=== PATIENT | male | born 1975 | race Caucasian/White ===

== ENCOUNTER → 2016-06-20 | Outpatient (CLI) | payer OTHER ==
[~2016-06-20] VITALS: Ht 182.9 cm; Wt 81.6 kg
[~2016-06-20] MED LIST: AMITRIPTYLINE H10 M3 PO; NAPROSYN500 MG PO
--- NOTE | ~2016-06-20 | HPC ---
[facility] [place] [address] PAIN MANAGEMENT CONSULTATION Name: SHANIKASTUART NAZARIO Room #: REG [facility].#: [id number] Admission: 06/20/16 Attend Phys: Chikis Givens MD Discharge: Date of : 79 Report #: [id number] THIS REPORT FOR: //name// CC: Chikis Dietrich MD DATE OF SERVICE: 06/20/2016 FOLLOWUP COMPLAINT: Pain radiating down the left leg with numbness, tingling, weakness and "my MRI shows a herniated disk." HISTORY OF PRESENT ILLNESS: The patient is a 41-year-old gentleman who has been followed and he has been referred to the pain clinic for evaluation of back and leg pain. The patient has had pain and discomfort over the last 7-8 months. The pain radiates down to the back of his leg with numbness, weakness and tingling. He also is experiencing pain now down into the lateral portion of his foot along the S1 distribution. He notes that the pain is exacerbated with activity and is worse at night. The patient has done physical therapy and taken hydrocodone with only mild improvement of his symptoms. He notes that his pain worsens with walking. It is somewhat better when he elevates his feet and lies down. He describes it as constant, shooting, stabbing and rates it as 7/10 at this juncture. ALLERGIES: No known drug allergies. MEDICATIONS: Naproxen 500 mg 1 p.o. b.i.d. FAMILY HISTORY: Heart disease, diabetes, hypertension and prostate cancer. PAST MEDICAL HISTORY: Generally unremarkable. PAST SURGICAL HISTORY: Double hernia repair, September 2013. SOCIAL HISTORY: He is a echocardiography technologist. He is working at this juncture. Drinks 1-2 alcoholic beverages per week. Denies use of tobacco. He is . Denies use of illicit drugs. He has 4 children. REVIEW OF SYSTEMS: A 14-point review of systems questionnaire in the chart indicates generally good health, chronic sinus problem with rhinitis. Otherwise, unremarkable. DIAGNOSTIC DATA: MRI of the lumbar spine dated 05/04/2016 reveals: 1. L4-L5 mild bilateral facet arthropathy. 2. L5-S1, there is a mild generalized disk bulge with a superimposed left paracentral disk herniation. This disk herniation compresses the left S1 nerve [address] [address] PAIN MANAGEMENT CONSULTATION Name: STUART VOSS Room #: REG [facility].#: [id number] Admission: 06/20/16 Attend Phys: Chikis Givens MD Discharge: Date of : 79 Report #: [id number] root and contributes to mild left-sided central canal stenosis. There is mild bilateral facet arthropathy. PHYSICAL EXAMINATION: VITAL SIGNS: Blood pressure 112/73, pulse 74, respiratory rate 16, room air saturation 97%. Height 6 feet, weight 180 kg, BMI ____. IMPRESSION: Herniated disk at L5-S1, radiating pain down the left L5-S1 nerve root to the level of his foot with numbness, tingling and weakness. RECOMMENDATIONS: 1. We discussed treatment options with the patient. Risks and benefits of an epidural steroid injection were discussed. Possible complications were reviewed. The patient was informed about the possible complications of an epidural steroid injection. He would like to proceed at this juncture. 2. We will petition his insurance company to let him undergo an epidural steroid series. Risks and benefits again were reviewed, and the patient will follow up for treatment after precertification by his insurance company. He has undergone 6 weeks of physical therapy, had greater than 6 weeks of Naprosyn and also tried ibuprofen in the past. By: [id number] Chikis Givens MD /hugo
[2016-06-20 08:36] VITALS: BP 112/73
== END | disposition home or self-care (01) ==
LOC: PAIN 07:01
DX: M51.27 Other intervertebral disc displacement, lumbosacral region (principal)

== ENCOUNTER → 2016-06-27 | Outpatient (CLI) | payer OTHER ==
[~2016-06-27] VITALS: Ht 182.9 cm; Wt 82.3 kg
--- NOTE | ~2016-06-27 | HPC ---
[facility] [address] [place] [address] PAIN MANAGEMENT CONSULTATION Name: STUART VOSS Room #: REG [facility].#: [id number] Admission: 06/27/16 Attend Phys: Chikis Givens MD Discharge: Date of : 77 Report #: [id number] THIS REPORT FOR: //name// CC: Chikis Dietrich MD DATE OF SERVICE: 06/27/2016 PRIMARY CARE PHYSICIAN: Jonathan Dietrich M.D. FOLLOWUP COMPLAINT: Here for an epidural steroid injection. FOLLOWUP HISTORY: The patient is a 41-year-old gentleman who has been seen in the pain clinic in the past because of lumbar radiculopathy. He has a disk at L5-S1 with a left paracentral disk herniation It compresses the left S1 nerve root and contributes to mild left-sided central canal stenosis. The patient rates his pain as a 4/10. It involves his low back with radiation down into his left leg, with numbness, weakness involving his foot. He would like to proceed with an epidural steroid injection at this juncture. PHYSICAL EXAMINATION: VITAL SIGNS: Blood pressure 117/56, pulse 92, respiratory rate 16 and room air O2 saturation is 97%. Height 6 feet, weight 82 kilograms. BMI 24. MUSCULOSKELETAL: The patient has pain and discomfort in the lower portion of his back, with pain radiating down to the left leg with numbness, tingling and weakness with radiation down into his foot. RADIOLOGIC DATA: MRI showing disk hernia at the L5-S1 nerve root. IMPRESSION Lumbar radiculopathy involving the L5-S1 nerve root with herniation of the disk at this level. RECOMMENDATIONS: We discussed the treatment options with the patient. Risks and benefits of an epidural steroid injection were discussed. Possible complications were reviewed. Possible complications were explained to the patient's satisfaction. We will proceed with an epidural steroid injection. PROCEDURE NOTE: The patient was placed in the prone position. Fluoroscopy was used to identify the L5-S1 interspace. This area had been sterilely prepped with Betadine and infiltrated with 0.25% bupivacaine. Total of 80 mg Depo-Medrol, 40 mg triamcinolone and 2 mL of 0.25% bupivacaine was injected. The patient tolerated the procedure well. He remained in the pain clinic for an appropriate amount of time. Six seconds of fluoroscopy time was used. He will continue with his current medical regimen of Naprosyn 500 mg 1 p.o. b.i.d. and Elavil 10 mg 1 p.o. at bedtime. He will call us if [place] [address] PAIN MANAGEMENT CONSULTATION Name: STUART VOSS Room #: REG [facility] Lisseth#: [id number] Admission: 06/27/16 Attend Phys: Chikis Givens MD Discharge: Date of : 79 Report #: [id number] medications. We would like to thank you for letting us participate in his care. We hope he continues to improve. By: [id number] Chikis Givens MD /hugo
[2016-06-27 09:16] VITALS: BP 117/56
== END | disposition home or self-care (01) ==
LOC: PAIN 06:50
DX: M54.16 Radiculopathy, lumbar region (principal); M51.26 Other intervertebral disc displacement, lumbar region

== ENCOUNTER → 2016-11-14 | Outpatient (CLI) | payer OTHER ==
[~2016-11-14] VITALS: Ht 182.9 cm; Wt 81.2 kg
[~2016-11-14] MED LIST changes: +AMITRIPTYLINE H25 M2 PO; +HYDROCODON-ACE1 EAC5 PO; +MOBIC15 MG PO
--- NOTE | ~2016-11-14 | HPC ---
[facility] [address] [place] [address] PAIN MANAGEMENT CONSULTATION Name: STUART VOSS Room #: REG [facility].#: [id number] Admission: 11/14/16 Attend Phys: Chikis Givens MD Discharge: Date of : 77 Report #: [id number] THIS REPORT FOR: //name// CC: Chikis Dietrich MD DATE OF SERVICE: 11/14/2016 PRIMARY PHYSICIAN: Jonathan Dietrich MD CHIEF COMPLAINT: Pain improves significantly after the first injection. It has worsened since going on a long drive. FOLLOWUP HISTORY: The patient is a 41-year-old gentleman who has been seen in the pain clinic because of lumbar radiculopathy. As you recall, he has suffered a herniated disk at the L5-S1 level. He underwent an epidural steroid injection earlier this year. Things are going relatively well and he was doing well. He went on a prolonged drive taking his kid to school. Since that time, he has had pain, which has been quite problematic. It has recurred and radiates down his left side to his left leg, foot and toes. He has some tenderness in his back as well. He rates the pain as a 10/10. He is having difficulty walking, sitting and standing. He ____ most comfortable position that of lying down with his feet elevated. PHYSICAL EXAMINATION: Blood pressure is 144/77, pulse 117, respiratory rate 20, room air saturation 99. The patient is lying on the bed. He has his feet somewhat elevated and complains of pain and discomfort in the lower portion of his back with pain radiating down into his leg involving the L5-S1 dermatomal distribution. He notes some tingling and numbness in the affected areas. IMPRESSION: 1. MRI of the lumbar spine dated 05/04/2016 reveals L5-S1 mild disk bulge with a superimposed left paracentral herniated disk. This disk compresses the L5-S1 nerve root and contributes to a mild left-sided canal stenosis. There is mild bilateral facet arthropathy. 2. Lumbar radiculopathy, which has improved in the past with an epidural steroid injection, but now has returned with pain radiating down to the left L5-S1 nerve root distribution with numbness, tingling and weakness. He rates his pain as a 10/10 and has difficulty engaging in activities of daily living. RECOMMENDATION: We will petition his insurance company for ability to provide treatment to ease his pain. The patient will return to the pain clinic after the insurance company allows and at which time he will undergo an epidural steroid injection. He has been given a script for hydrocodone 10/325 one p.o. q. 8 hours p.r.n., Elavil 25 mg 1 p.o. at bedtime and we will increase it [address] [address] PAIN MANAGEMENT CONSULTATION Name: STUART VOSS [facility] [id number] Admission: 11/14/16 Attend Phys: Chikis Givens MD Discharge: Date of : 77 Report #: [id number] his sleep continues to be problematic and he remains at pain. Mobic 15 mg 1 p.o. daily. I would like to thank you for letting us participate in his care. We hope he continues to improve. By: [id number] [id number] Chikis Givens MD /
[2016-11-14 08:57] VITALS: BP 144/77
== END | disposition home or self-care (01) ==
LOC: PAIN 07:22
DX: M54.16 Radiculopathy, lumbar region (principal); Z98.890 Other specified postprocedural states

== ENCOUNTER → 2016-11-21 | Outpatient (CLI) | payer OTHER ==
[~2016-11-21] VITALS: Ht 182.9 cm; Wt 82.6 kg
--- NOTE | ~2016-11-21 | HPC ---
[facility] [address] [place] [address] PAIN MANAGEMENT CONSULTATION Name: SAMARAJORDINSTUARTMARNIE NAZARIO [facility] [id number] Admission: 11/21/16 Attend Phys: Chikis Givens MD Discharge: Date of : 79 Report #: [id number] THIS REPORT FOR: //name// CC: Chikis Dietrich DATE OF SERVICE: 11/21/2016 FOLLOWUP HISTORY: I am here for an injection. Pain was worse after a driving my tow to [place]. SUBJECTIVE: The patient is a 41-year-old gentleman who has been seen in the pain clinic because of lumbar radiculopathy. He has undergone epidural steroid injections in the past and gleaned benefits from this. He drove his tow to [place]. After that, he had noticed worsening of his pain and discomfort. He was experiencing pain, which radiated down into his leg on the left. He continued to have pain in the L5-S1 distribution. He has followed up in the pain clinic. His insurance company has at this juncture presorted him for an epidural steroid injection. He has returned for treatment. PHYSICAL EXAMINATION: Blood pressure 122/88, pulse 88, respiratory rate 16, room air saturation is 100. The patient has pain and discomfort radiating down into the left leg with numbness, tingling and weakness in the L5-S1 disk nerve distribution. He also has pain radiating down to the level of his foot. IMPRESSION: Lumbar radiculopathy with an MRI showing L5 degenerative disk disease and disk bulge in the superimposed left paracentral disk herniation. RECOMMENDATIONS: We discussed treatment options with the patient. Again, risks and benefits of the procedure were discussed. They include but are not limited to infection and increased muscle soreness, bleeding, headaches, muscle trauma, nerve trauma and the patient elects to proceed. PROCEDURE NOTE: The patient was placed in the prone position. Fluoroscopy was used to identify the L5-S1 interspace. This area had been sterilely prepped with Betadine and infiltrated with 0.25% bupivacaine. Total of 80 mg Depo-Medrol, 40 mg triamcinolone and 2 mL of 0.25% bupivacaine was injected. The patient tolerated the procedure well. There were no complications. He remained in the pain clinic for an appropriate amount of time. He will follow up in the future as needed. We would like to thank you for letting us participate in his care. We hope he continues to improve. By: [id number] Chikis Givens MD /hugo
[2016-11-21 12:42] VITALS: BP 122/80
== END | disposition home or self-care (01) ==
LOC: PAIN 07:07
DX: M51.16 Intervertebral disc disorders with radiculopathy, lumbar region (principal)

== ENCOUNTER → 2016-12-12 | Outpatient (CLI) | payer OTHER ==
[~2016-12-12] VITALS: Ht 182.9 cm; Wt 81.6 kg
[~2016-12-12] MED LIST changes: +MEDROLDOSEPACK PO; +PERCOCET 10-321 EACH PO
--- NOTE | ~2016-12-12 | HPC ---
[facility] [address] [address] PAIN MANAGEMENT CONSULTATION Name: STUART VOSS [facility] [id number] Admission: 12/12/16 Attend Phys: Chikis Givens MD Discharge: Date of : 79 Report #: [id number] THIS REPORT FOR: //name// CC: Chikis Dietrich DATE OF SERVICE: 12/12/2016 FOLLOWUP COMPLAINT: Return of back and leg pain, which improved by greater than 50% in the past. FOLLOWUP HISTORY: The patient is a 41-year-old gentleman who has been seen in the pain clinic because of lumbar radiculopathy. He has undergone epidural steroid injections. He has gleaned in improvement in this after a long trip to [facility]. He noted some worsening of his pain and discomfort. He underwent an epidural steroid injection and noted some continued improvement, but continues to have pain and discomfort, which he described as a 5/10. Pain involves his left thigh and radiates down into his leg involving his foot and toes. He also is having some numbness in his left buttocks and left calf. He notes walking and standing are problematic. Lying down with his feet elevated is somewhat helpful. He continues to exercise. PHYSICAL EXAMINATION: Blood pressure is 131/80, pulse 67, respiratory rate 16, room air saturation 98%. Height 6 feet, weight 180 pounds, BMI is 24. The patient has not fallen since we saw him last. He continues to have pain and discomfort, which has improved with series of epidural steroid injections thus far, but continues to be problematic at this juncture. IMPRESSION: 1. Lumbar radiculopathy in the L5 distribution with pain radiating down into his posterior thigh, calf and lateral to toes in the L5-S1 distribution. 2. MRI findings which indicates L5-S1 disk bulge with superimposed left paracentral disk herniation. The disk herniation compresses the left S1 nerve root and contributes to a left-sided central canal stenosis. RECOMMENDATIONS: We will proceed should his insurance company. He has received greater than 50% improvement with the injections. He does have a herniated disk on MRI, which showed pressure on the L5-S1 nerve root. He continues to try nonsteroidal antiinflammatory medications. He has tried a Medrol Dosepak. He continues to exercise. He is on meloxicam. He is using amitriptyline to help with pain and sleep. The patient will return to the pain clinic at which time he will undergo an epidural steroid injection in the L5-S1 distribution, which shows pain radiating down the posterior portion of his leg with numbness, tingling and straight leg raise possible and numbness and tingling of the [facility] [address] [place] [address] PAIN MANAGEMENT CONSULTATION Name: STUART VOSS Room #: REG [facility]#: [id number] Admission: 12/12/16 Attend Phys: Chikis Givens MD Discharge: Date of : 79 Report #: [id number] lateral to toes on his foot. We would like to thank you for letting us participate in his care. We hope he continues to improve. By: [id number] Chikis Givens MD /SHARIF
[2016-12-12 12:35] VITALS: BP 131/80
== END | disposition home or self-care (01) ==
LOC: PAIN 07:26
DX: M54.16 Radiculopathy, lumbar region (principal)

== ENCOUNTER → 2017-02-08 | Outpatient (CLI) | payer OTHER ==
[~2017-02-08] VITALS: Ht 182.9 cm; Wt 84.4 kg
--- NOTE | ~2017-02-08 | HPC ---
[facility] [place] [address] [address] [place] [address] PAIN MANAGEMENT CONSULTATION Name: SHANIKASTUARTMARNIE NAZARIO [id number] Admission: 02/08/17 Attend Phys: Chikis Givens MD Discharge: Date of : 79 Report #: [id number] THIS REPORT FOR: //name// CC: Chikis Dietrich DATE OF SERVICE: 02/08/2017 FOLLOWUP COMPLAINT: Pain has improved, greater than 50% since the injections. Still having pain and discomfort with numbness down into the left leg, buttocks and involving the outer toes. FOLLOWUP HISTORY: The patient is a 41-year-old gentleman who has been seen in the pain clinic because of lumbar radiculopathy. He has MRI findings of an L5-S1 disk bulging with pressure on the left sciatic nerve. He feels that his pain is improved since the injections, but continues to have some pain and discomfort with numbness. He continues to have numbness and weakness involving the left leg. As you recall, he drove to [place]. Noticed it after dropping off the family member, has been experiencing pain and discomfort since that time. PHYSICAL EXAMINATION: Blood pressure 127/81, pulse 100, respiratory rate 16, room air saturation 97%. Height 6 feet, weight 186 pounds, BMI is 25. The patient has not fallen since we saw him last. Does note some decrease in strength with numbness involving his toes on the left leg. IMPRESSION: 1. Lumbar radiculopathy in the L5-S1 distribution involving the calf lateral portion of his leg. 2. MRI findings with indicate L5-S1 disk bulge with superimposed left paracentral disk herniation. The disk herniation compresses the left S1 nerve root and contributes to the left-sided central canal stenosis. RECOMMENDATIONS: The patient will follow up after being certified by his insurance company. He will then undergone an epidural steroid injection. Risks and benefits of the procedure were again reviewed with the patient. He would like to proceed. By: [id number] Chikis Givens MD /[facility]
[2017-02-08 13:02] VITALS: BP 127/81
== END ==
LOC: PAIN 06:51
DX: M54.16 Radiculopathy, lumbar region (principal); M51.27 Other intervertebral disc displacement, lumbosacral region

== ENCOUNTER → 2017-02-20 | Outpatient (CLI) | payer OTHER ==
[~2017-02-20] VITALS: Ht 182.9 cm; Wt 82.6 kg
--- NOTE | ~2017-02-20 | HPC ---
[facility] [address] [address] PAIN MANAGEMENT CONSULTATION Name: STUART VOSS [facility] [id number] Admission: 02/20/17 Attend Phys: Chikis Givens MD Discharge: Date of : 79 Report #: [id number] THIS REPORT FOR: //name// CC: Chikis Dietrich DATE OF SERVICE: 02/20/2017 FOLLOWUP COMPLAINT: "Here for an injection, my insurance company has pre-certified me." FOLLOWUP HISTORY: The patient is a 41-year-old gentleman who has been seen and followed in the pain clinic because of lumbar radiculopathy. He has undergone epidural steroid injections in the past and gleaned improvement in them. He has been having pain that is radiating down the left posterior portion of his leg. There is cramping pain, numbness and weakness in the affected area, and he rates it as a 4/10 today. He took a Medrol Dosepak, which helped. Overall, he feels that things are heading in the right direction, but still has pain and discomfort if he stands too long or engages in certain activities. PHYSICAL EXAMINATION: Blood pressure 134/75, pulse 80, respiratory rate 16, room air saturation 97%. Height 6 feet, weight 182 pounds, BMI is 24. The patient has pain and discomfort which is radiating down in the posterior portion of his little left buttock, hamstring, and calf area with numbness, weakness, and tenderness. IMPRESSION: 1. L5-S1 distribution pain. 2. MRI findings indicating L5-S1 bulge with superimposed left paracentral disk herniation. The disk herniation and compression on the left nerve root contributes to left-sided central canal stenosis. RECOMMENDATION: We discussed treatment options with the patient again. Risks and benefits of the procedure were discussed. Possible complications which could include but are not limited to infection, increased muscle soreness, headache, spinal/nerve damage, and muscle trauma. The patient elects to proceed. PROCEDURE NOTE: The patient was placed in the prone position. Fluoroscopy was used to identify the L5-S1 area. The left paraspinal area was identified, 0.25% bupivacaine was infiltrated into this area. A 17-gauge Tuohy with loss of resistance technique was used to gain access to the epidural space. There was no CSF, heme, or paresthesia. Total of 80 mg Depo-Medrol, 40 mg triamcinolone, and 2 mL of 0.25% bupivacaine was injected. The patient tolerated the procedure well. [place] [address] PAIN MANAGEMENT CONSULTATION Name: SAMARAJORDINSTUART ARAVIND Room #: REG [facility]#: [id number] Admission: 02/20/17 Attend Phys: Chikis Givens MD Discharge: Date of : 79 Report #: [id number] We would like to thank you for letting us participate in his care. We hope he continues to improve. By: [id number] Chikis Givens MD /SHARIF
[2017-02-20 10:12] VITALS: BP 134/75
== END | disposition home or self-care (01) ==
LOC: PAIN 06:39
DX: M51.16 Intervertebral disc disorders with radiculopathy, lumbar region (principal)